=== PATIENT | male | born 1970 | race Hispanic/Latino ===

== ENCOUNTER 2021-10-27 19:09 | Emergency (ER) | payer MEDICAID, SELFPAY ==
[2021-10-27 19:10] VITALS: BP 165/90; PULSE 87; RESP 16; TEMP 37; O2SAT 99; BMI 26.6
[2021-10-27 20:34] LABS: Bacteria 0 SEEN /hpf (None Seen); Mucous, Urine 0 SEEN /hpf (<or=2+); Squamous Epithelial Cells - UA 0 SEEN /hpf (0-5); White Blood Cells 0 SEEN /hpf (0-5)
[2021-10-27 20:37] LABS: Color, Urine Yellow (Yellow); Glucose, Dipstick Normal (Normal); Ketone-Dipstick Negative (Negative); Leukocyte Esterase-Dipstick Negative /ul (Negative); Nitrite-Dipstick Negative (Negative); Occult Blood-Urine 50 /ul (Negative); Protein-Dipstick Negative (Negative); Specific Gravity, Urine 1.015 (1.002-1.030); Urine Bilirubin Dipstick Negative (Negative); Urine Clarity Clear (Clear); Urine Urobilinogen Normal (Normal)
[2021-10-27 21:06] LABS: Red Blood Cells-Urine 0-5 SEEN /hpf (0-5)
[2021-10-27 21:09] VITALS: PULSE 71; RESP 15; O2SAT 99
--- NOTE | 2021-10-27 21:49 | EX.ED.GUMALE ---
HPI History of Present Illness Chief Complaint: Complaint Detail of Chief Complaint: Urinary retention Informant: patient Pain Onset: Today and Yesterday Timing: Continuous Current Severity: Mild Maximum Severity: Mild Narrative Narrative: 51-year-old speaking male does not speak Wolof. He is from [place]. He has been unable to urinate for the last 2 days. Said it started yesterday. He had a similar episode before in [place] and believes it was from an enlarged prostate. That occurred 4 months ago. He denies any hematuria or dysuria. He is never had any abdominal or pelvic or surgeries. He is currently on no medications. He has never had a catheter. Prior similar symptoms: Yes Recent Illness/Hospitalization: No PFSH PFSH Home Medications tamsulosin [Flomax] 0.4 mg PO DAILY #20 cap 10/27/21 [Rx Last Taken Unknown] Allergy/AdvReac Type Severity Reaction Status Date / Time No Known Allergies Allergy Verified 10/27/21 19:14 Social History Smoking Status: Unknown if ever smoked ROS ROS ED ROS Narrative Urinary retention. Constitutional Constitutional ED: Denies fever(s) Eyes Eyes: Denies change in vision ENT ENT ED: Denies ear pain Cardiovascular Cardiovascular: Denies chest pain Respiratory/Chest Respiratory/Chest: Denies dyspnea Gastrointestinal Gastrointestinal: Reports abdominal pain; Denies constipation, diarrhea, melena, nausea or vomiting Genitourinary Genitourinary ED: Reports other Details: Urinary retention. ; Denies dysuria, hematuria or urinary frequency Musculoskeletal Musculoskeletal: Denies myalgias Integumentary Denies rash Neurologic Neurologic: Denies headache(s) Psychiatric Psychiatric: Denies depression Endocrine Endocrinology: Denies polyuria Hematologic/Lymphatic Hematologic/Lymphatic: Denies easy bruising Allergic/Immunologic Allergic/Immunologic ED: Denies urticaria EXAM Physical Exam Narrative Exam Narrative: Fatigue male no acute distress. Nursing triage already spoken with patient and placed a 16 Latvian Ramirez catheter and he put out about 1200 cc of urine. Primarily yellow. There was resistance when a place a Ramirez at the prostate. His bladder scan showed about 850 prior to placement. H EENT exam unremarkable. Lungs clear. Heart regular rhythm. Abdomen soft nondistended normal bowel sounds no peritoneal signs. The catheter is already in place. External exam circumcised male otherwise unremarkable with a catheter in place. Moving all 4 extremities. No edema. Neurologically is awake and alert. Const Vital Signs: 10/27/21 19:10 10/27/21 21:09 Temperature 98.6 F Temperature Source Temporal Pulse Rate 87 71 Respiratory Rate 16 15 Blood Pressure 165/90 H Blood Pressure Mean 115 Pulse Ox 99 99 Oxygen Delivery Method Room Air Room Air Positive well nourished and well developed; Negative for obese, cachectic, contractures or unkempt General Appearance ED: well developed and NAD; Negative for unkempt, cachectic, contractures or pallor Nutritional Appearance: Negative for cachectic or obese HEENT Reports moist mucous membranes normocephalic and atraumatic Eyes PERRL and EOMs intact bilaterally Neck no lymphadenopathy, supple and no JVD General: Negative for tenderness Resp normal respiratory effort and clear to auscultation bilaterally Auscultation: Negative for rales, rhonchi or wheezes Cardio regular rate, regular rhythm, S1 normal heart sound, S2 normal heart sound and no murmurs GI non-tender, non-distended and no masses GI Narrative: Ramirez catheter in place and bladder already Auscultation: normoactive bowel sounds; Negative for hyperactive bowel sounds or hypoactive bowel sounds Palpation: soft Rectal Exam: Negative for tenderness no CVA tenderness Penis: normal penis and circumcised Meatus: meatus normal Scrotum: testes descended bilaterally Back/Spine no CVA tenderness General Back: Negative for CVA tenderness Extremity normal to inspection General Extremety ED: Negative for edema or tenderness General Extremity: Negative for edema Neuro oriented x3 Sensorium / Orientation: alert, oriented to person, oriented to place and oriented to time; Negative for orientation impaired, confused, lethargic or stuporous Psych mental status grossly normal Appearance: Negative for unkempt Skin General Skin Exam: Negative for jaundice or pallor Lesions: no lesions Rashes: no rashes MDM MDM MDM Narrative Medical decision making narrative: 51-year-old male from [place] Mozambican-speaking but 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 Has a history of prior urinary retention while in [place] 4 months ago. Bladder scan showed over 850 cc of urine. Ramirez was placed by nursing a 16 Latvian and had 1200 cc of urine out. Urinalysis is negative. He will be discharged home with a Ramirez catheter and a leg bag in place. To follow-up with urology. He will be started on Flomax. Lab Data Attestation: I reviewed the patient's lab results. Lab results narrative: Urinalysis is negative no signs of infection. Labs: Laboratory Results - last 24 hr 10/27/21 20:21 Urine Color Yellow Urine Clarity Clear Urine pH 6.0 Ur Specific [place] 1.015 Urine Protein Negative Urine Glucose (UA) Normal Urine Ketones Negative Urine Occult Blood 50 H Urine Nitrite Negative Urine Bilirubin Negative Urine Urobilinogen Normal Ur Leukocyte Esterase Negative Urine RBC 0-5 SEEN Urine WBC 0 SEEN Ur Squamous Epith Cells 0 SEEN Urine Bacteria 0 SEEN Urine Mucus 0 SEEN Discharge Plan Triage Chief Complaint: Complaint ED Provider: Clifford Dubon Dx/Rx/DC Orders Clinical Impression: Acute urinary retention, Benign enlargement of prostate Instructions: ED BPH (Enlarged Prostate), ED Urinary Retention, Male Prescriptions: New tamsulosin [Flomax] 0.4 mg capsule 0.4 mg PO DAILY Qty: 20 RF: 0 Primary Care Provider: NOT,DEFINED Referrals: Neo Wiggins MD [STAFF PHYSICIAN] - As soon as possible NOT,DEFINED [Primary Care Provider] - Activity Restrictions/Additional Instructions: You had urinary retention most likely secondary to enlarged prostate. No signs of infection. The Ramirez catheter will remain in place until you see the urologist, Dr. Eduin Wiggins. They can take it out when you see them. Do not take the medications you were previously on because I do not know what they are. Start the Flomax once a day as soon as you get it filled. Empty the Ramirez bag whenever half filter more. Call and follow-up with the urologist as soon as possible. Print Language: Mozambican Disposition Disposition: Home, Self Care
== END 2021-10-27 22:26 | disposition home or self-care (01) ==
PROVIDERS: Emergency Provider Emergency Medicine
DX: N40.1 Benign prostatic hyperplasia with lower urinary tract symptoms (principal); R33.8 Other retention of urine
CPT/HCPCS: 51702; 81001; 99285

== ENCOUNTER 2021-10-29 13:27 | Emergency (ER) | payer MEDICAID, SELFPAY ==
[2021-10-29 13:33] VITALS: BP 129/91; PULSE 99; RESP 18; TEMP 36.6; O2SAT 98; BMI 26.6
--- NOTE | 2021-10-29 16:36 | EDS_ITS ---
HPI History of Present Illness Chief Complaint: Ramirez C/O Limited: language barrier (Refueling Ramp Attendant was used for communication) Onset/Context/Timing Onset: Days (3) Context: Gradual Onset Timing: Continuous Quality: Discharge and burning Location: Urethra Worsened by: Nothing Relieved by: Nothing Narrative Narrative: Patient presents with pain around his Ramirez catheter. Patient states he has been having some discharge from around the catheter over the last 2 days. Patient had a catheter placed 3 days ago for urinary retention. Patient states he was not able to follow-up with the urologist. Patient denies any fevers or chills. Patient admits to a burning sensation around the catheter. Patient denies any discoloration of his urine. PFSH PFSH Home Medications tamsulosin [Flomax] 0.4 mg PO DAILY #20 cap 10/27/21 [Rx Last Taken Unknown] cephalexin 500 mg PO Q6 #28 capsule 10/29/21 [Rx Last Taken Unknown] Allergy/AdvReac Type Severity Reaction Status Date / Time No Known Allergies Allergy Verified 10/29/21 15:46 Social History Smoking Status: Unknown if ever smoked ROS ROS ED Constitutional Constitutional ED: Denies chills or fever(s) Eyes Eyes: Denies blurry vision or change in vision ENT ENT ED: Denies rhinorrhea or sore throat Cardiovascular Cardiovascular: Denies chest pain or palpitations Respiratory/Chest Respiratory/Chest: Denies cough or dyspnea Gastrointestinal Gastrointestinal: Denies nausea or vomiting Genitourinary Genitourinary ED: Reports dysuria; Denies hematuria Musculoskeletal Musculoskeletal: Denies back pain or neck pain Integumentary Denies abscess or rash Neurologic Neurologic: Denies headache(s) or weakness Allergic/Immunologic Allergic/Immunologic ED: Denies mouth swelling or urticaria EXAM Physical Exam Const Vital Signs: 10/29/21 13:33 Temperature 98 F Temperature Source Temporal Pulse Rate 99 Respiratory Rate 18 Blood Pressure 129/91 H Blood Pressure Mean 103 Pulse Ox 98 Oxygen Delivery Method Room Air Positive well nourished and well developed General Appearance ED: well developed HEENT Reports moist mucous membranes Neck supple and no JVD Resp normal respiratory effort and clear to auscultation bilaterally Cardio regular rate and regular rhythm GI normal to inspection, nondistended, normoactive bowel sounds Palpation: soft and tender suprapubic (Mild); Negative for guarding or rebound tenderness present Neuro oriented x3, CN's II-XII intact bilaterally and no sensory deficits noted Sensorium / Orientation: alert Motor Exam: strength 5/5 throughout Psych mental status grossly normal MDM MDM MDM Narrative Medical decision making narrative: I offered to remove the catheter today. Patient does not want to have the catheter removed here. He prefers to follow- up with urology and have the urologist remove it. Patient was given a prescription for Keflex. Patient was instructed to follow-up with the urologist in 5 to 7 days. Nursing staff attempted to schedule a urologist follow-up appointment however, there are none available today or this week. Patient understands and is agreeable with the plan. All questions were answered. Discharge Plan Triage Chief Complaint: Ramirez C/O ED Provider: Shiva Heredia Dx/Rx/DC Orders Clinical Impression: Acute urinary retention Instructions: ED Ramirez Catheter, Care Prescriptions: New cephalexin [cephalexin] 500 MG capsule 500 mg PO Q6 Qty: 28 RF: 0 No Action tamsulosin [Flomax] 0.4 mg capsule 0.4 mg PO DAILY Qty: 20 RF: 0 Primary Care Provider: Care Physician,No Primary Referrals: Neo Wiggins MD [STAFF PHYSICIAN] - 5-7 Days Care Physician,No Primary [Primary Care Provider] - Activity Restrictions/Additional Instructions: We were unable to schedule a follow-up appointment with the urologist. Their office closed at noon today and will not be open until next week. Print Language: Surinamese Disposition Disposition: Home, Self Care Discharge Date/Time: 10/29/21 17:28
--- NOTE | 2021-11-03 11:22 | CM.ED ---
SOCIAL WORK Call to Dr. Wiggins's office. Informed by scheduling, patient showed up to office this morning. Dr. Wiggins was able to speak with patient as patient is Citizen Of [place] speaking. Office is attempting to contact Jack for patient as Dr. Wiggins's office does not take patient's insurance to set him up with urology. This worker to remain available for needs. Brandy Crespo, INTERNAL GRINDER, GEAR TECHNICIAN
== END 2021-10-29 17:28 | disposition home or self-care (01) ==
LOC: ED 17:05
PROVIDERS: Emergency Provider Emergency Medicine
DX: R33.9 Retention of urine, unspecified (principal); T83.84XA Pain due to genitourinary prosthetic devices, implants and grafts, initial encounter
CPT/HCPCS: 99282

== ENCOUNTER 2023-04-25 10:36 | Emergency (ER) | payer MEDICAID, SELFPAY ==
[2023-04-25 10:36] VITALS: BP 142/79; PULSE 104; RESP 20; TEMP 36.4; O2SAT 98; BMI 28.5
[2023-04-25 10:39] VITALS: BP 142/79; PULSE 104; RESP 20; TEMP 36.4; O2SAT 98
[2023-04-25 11:24] LABS: Absolute Lymphocyte Count 1.18 X10^3/uL (0.83-4.51); Absolute Neutrophil Count 11.1 X10^3/uL (2.0-7.7); Basophil# 0.03 X10^3/uL; Basophil% 0.2 % (0-1); Hematocrit 43.1 % (40-54); Hemoglobin 13.9 g/dL (13.0-16.5); Lymphocyte # 1.18 X10^3/ul (0.83-4.51); Lymphocyte % 9.2 % (19-41); Mean Corp Hgb Conc 32.3 g/dL (32-36); Mean Corpuscular Hgb 27.6 pg (27.0-32.0); Mean Corpuscular Volume 85.7 fL (80-94); Mean Platelet Vol. 9.7 fl (6.2-12.0); Monocyte% 3.1 % (0-10); NRBC Flagged by Analyzer 0 % (0-5); Neutrophil # 11.12 X10^3/uL (2.7-7.7); Neutrophil % 87.1 % (47-70); Platelet Count 269 K/mm3 (150-450); RBC Distribution Width CV 13.4 % (11.6-14.6); RBC Distribution Width SD 41.8 fl (35.1-43.9); Red Blood Count 5.03 M/mm3 (4.6-6.2); White Blood Count 12.8 K/mm3 (4.4-11.0)
[2023-04-25] MEDS: Ondansetron 4 MG/2 ML Vial IV (11:27)
[2023-04-25 11:28] VITALS: BP 141/98; PULSE 96; RESP 18; O2SAT 95
[2023-04-25] MEDS: Morphine 4 MG/ML Syringe IV (11:28)
[2023-04-25 11:35] VITALS: BP 135/94; PULSE 97; RESP 16; TEMP 37; O2SAT 97
--- NOTE | 2023-04-25 11:37 | EDS_ITS ---
HPI History of Present Illness Chief Complaint: Flank Pain Narrative Narrative: 52-year-old male with urinary retention. He has a history of prostate large with. He states he supposed to have surgery at [facility] 28 June. Patient has urinary retention since yesterday at 8 PM. He was able to void once prior to this. Patient states he has a history of urinary retention. He has been taking his prostate medicine. [facility] Medical History (Updated 04/25/23 @ 11:56 by Eleonora Mccauley) BPH (benign prostatic hyperplasia) Home Medications tamsulosin 0.4 mg capsule (Flomax) 0.4 mg PO DAILY #20 caps 10/27/21 [Rx Last Taken Unknown] Allergy/AdvReac Type Severity Reaction Status Date / Time No Known Allergies Allergy Verified 10/29/21 15:46 Social History Smoking Status: Never smoker ROS ROS ED Constitutional Constitutional ED: Denies chills, fever(s) or sweats Eyes Eyes: Denies blurry vision or change in vision ENT ENT ED: Denies ear pain or sore throat Cardiovascular Cardiovascular: Denies chest pain, palpitations or racing heartbeat Respiratory/Chest Respiratory/Chest: Denies cough, dyspnea or sputum Gastrointestinal Gastrointestinal: Reports abdominal pain; Denies constipation, diarrhea, nausea or vomiting Genitourinary Genitourinary ED: Reports other Details: Urinary retention ; Denies dysuria, hematuria or urinary frequency Musculoskeletal Musculoskeletal: Denies arthralgias, myalgias or neck pain Integumentary Denies abscess, Abrasions or rash Neurologic Neurologic: Denies headache(s), paresthesias or weakness Psychiatric Psychiatric: Denies anxiety, depression, suicidal ideation or suicidal thoughts Endocrine Endocrinology: Denies polydipsia or polyuria EXAM Physical Exam Const Vital Signs: 04/25/23 10:36 04/25/23 11:35 04/25/23 11:28 Temperature 97.5 F L Temperature Source Temporal Pulse Rate 104 H 97 96 Respiratory Rate 20 H 16 18 Blood Pressure 142/79 H 135/94 H 141/98 H Blood Pressure Mean 100 107 112 Pulse Ox 98 97 95 Oxygen Delivery Method Room Air Room Air Room Air 04/25/23 10:39 04/25/23 11:35 04/25/23 13:00 Temperature 97.5 F L 98.6 F 96.4 F L Temperature Source Temporal Oral Oral Pulse Rate 104 H 97 75 Respiratory Rate 20 H 16 16 Blood Pressure 142/79 H 135/94 H 143/84 H Blood Pressure Mean 100 107 103 Pulse Ox 98 95 Oxygen Delivery Method Room Air Room Air Room Air 04/25/23 14:00 Temperature 97.8 F Temperature Source Oral Pulse Rate 71 Respiratory Rate 16 Blood Pressure 124/88 H Blood Pressure Mean 100 Pulse Ox 96 Oxygen Delivery Method Room Air Positive well nourished General Appearance ED: NAD; Negative for pallor HEENT Reports moist mucous membranes normocephalic Eyes PERRL and EOMs intact bilaterally Resp normal respiratory effort and clear to auscultation bilaterally Cardio regular rate and regular rhythm GI GI Narrative: Suprapubic fullness and tenderness. Extremity normal to inspection General Extremety ED: Yes edema and pulses abnormal General Extremity: edema and pulses abnormal Neuro oriented x3 and CN's II-XII intact bilaterally Sensorium / Orientation: alert Psych mental status grossly normal Skin General Skin Exam: Negative for jaundice or pallor MDM MDM MDM Narrative Medical decision making narrative: Patient presenting with acute urinary retention which started yesterday. Is not been able to void. He states he has a history of enlarged prostate and does have Flomax and has not missed any doses. He is Latvian-speaking and speaks a little bit of Hungarian but he prefers to use his phone for interpreting. He does not want me to use the controller instructor phone. We were able to communicate very well this way. Patient states that he has surgery upcoming for his prostate. We will obtain a CBC to assess white blood cell count, hemoglobin, platelets. BMP to assess renal function, electrolytes. Urinalysis to assess for UTI. Patient given morphine and Zofran as well as Uro-Jet to place Ramirez catheter which was placed with some difficulty. Patient feels much better after this was placed and in total since has been here he is put out a liter of urine. CBC shows a slight leukocytosis at 12.8. Hemoglobin stable 13.9, renal function electrolytes within normal limits. Urinalysis negative for infection. CT abdomen pelvis was obtained and shows no acute process. Discussed with the patient that he would need to go with a leg bag although he does not want to wear on his leg he wants to have a strap to his chest. He states this is how he did it before. He understands I will need to call his urologist tomorrow and tell him that the Ramirez catheter. Return precautions discussed. Impression: 1. Acute urinary retention 2. Abdominal pain Lab Data Labs: Laboratory Results - last 24 hr 04/25/23 04/25/23 04/25/23 11:17 11:17 11:50 WBC 12.8 H RBC 5.03 Hgb 13.9 Hct 43.1 MCV 85.7 MCH 27.6 MCHC 32.3 RDW Std Deviation 41.8 RDW Coeff of Uriel 13.4 Plt Count 269 MPV 9.7 Immature Gran % (Auto) 0.400 Neut % (Auto) 87.1 H Lymph % (Auto) 9.2 L [place] % (Auto) 3.1 Eos % (Auto) 0.0 Baso % (Auto) 0.2 Absolute Neuts (auto) 11.1 H Absolute Lymphs (auto) 1.18 Nucleated RBC % 0 Sodium 139 Potassium 4.1 Chloride 104 Carbon Dioxide 22.0 Anion Gap 13 BUN 11 Creatinine 0.96 Estim Creat Clear Calc 83.20 Est GFR (MDRD) Af Amer 105 Est GFR (MDRD) Non-Af 87 BUN/Creatinine Ratio 11.5 Glucose 108 H Calcium 9.5 Urine Color Yellow Urine Clarity Clear Urine pH 5.0 Ur Specific [place] 1.015 Urine Protein Negative Urine Glucose (UA) Normal Urine Ketones Negative Urine Occult Blood 10 H Urine Nitrite Negative Urine Bilirubin Negative Urine Urobilinogen Normal Ur Leukocyte Esterase Negative Urine RBC 0-5 SEEN Urine WBC 0 SEEN Ur Squamous Epith Cells 0 SEEN Urine Bacteria 0 SEEN Urine Mucus 0 SEEN Radiography Diagnostic Testing: Clinical Impression(s) from Imaging Studies Abdomen/Pelvis CT 04/25/23 11:38 IMPRESSION: Negative examination for renal stone. Enlarged prostate gland. Ramirez catheter decompression of the bladder. No hydronephrosis. Electronically Signed: Peri Wise MD at 13:24 EDT , ADDENDUM: 04/25/23 1400 IMPRESSION: undefined Discharge Plan Triage Chief Complaint: Flank Pain ED Provider: Juni Joshua Dx/Rx/DC Orders Instructions: ED Urinary Retention, Male Prescriptions: No Action tamsulosin [Flomax] 0.4 mg capsule 0.4 mg PO DAILY Qty: 20 0RF Primary Care Provider: Care Physician,No Primary Referrals: Care Physician,No Primary [Primary Care Provider] - Disposition Disposition: Home, Self Care
[2023-04-25 11:38] LABS: Anion Gap 13 (5-15); BUN 11 mg/dL (7-18); BUN/Creat Ratio 11.5 RATIO (10-20); Calcium,Total 9.5 mg/dL (8.5-10.1); Chloride 104 mmol/L (98-107); Creatinine, Serum 0.96 mg/dL (0.70-1.30); EST Glomerular Filtration Rate 87 mL/min (>60); Est Glom Filt Rate - Afr Amer 105 mL/min (>60); Glucose 108 mg/dL (74-106); Potassium 4.1 mmol/L (3.5-5.1); Sodium Level 139 mmol/L (136-145)
--- NOTE | 2023-04-25 11:38 | CT_ITS ---
HISTORY: flank pain. TECHNIQUE: Helically acquired images were obtained of the abdomen and pelvis without oral or IV contrast. A radiation dose optimization technique was used for this scan. 458 images. COMPARISON: None. FINDINGS: LOWER CHEST: Lung bases clear. BOWEL: Ingested material in the stomach. Bowel including appendix nondilated. No focal pericolonic inflammatory change. PERITONEUM: No significant free fluid. LIVER/SPLEEN: Nonenlarged. GALLBLADDER/BILIARY TREE: Gallbladder present. KIDNEYS AND URETERS: No nephrolithiasis or obstructing ureteral calculus. PANCREAS/ADRENAL GLANDS: Unremarkable. VESSELS: No abdominal aortic aneurysm. Mild atherosclerosis. PELVIC ORGANS: 5.7 x 6.2 cm prostate gland. Ramirez catheter decompression of the urinary bladder . BONES: Intact. CT/Abdomen/Pelvis without Cont IMPRESSION: Negative examination for renal stone. Enlarged prostate gland. Ramirez catheter decompression of the bladder. No hydronephrosis. Electronically Signed: Peri Wise MD at 13:24 EDT ,
[2023-04-25] MEDS: Lidocaine Jelly 2% 20 ML Syringe (URO-JET) 1 APPLIC TOPICAL (11:45)
[2023-04-25 11:57] LABS: Bacteria 0 SEEN /hpf (None Seen); Mucous, Urine 0 SEEN /hpf (<or=2+); Squamous Epithelial Cells - UA 0 SEEN /hpf (0-5); White Blood Cells 0 SEEN /hpf (0-5)
[2023-04-25 12:00] LABS: Color, Urine Yellow (Yellow); Glucose, Dipstick Normal (Normal); Ketone-Dipstick Negative (Negative); Leukocyte Esterase-Dipstick Negative /ul (Negative); Nitrite-Dipstick Negative (Negative); Occult Blood-Urine 10 /ul (Negative); Protein-Dipstick Negative (Negative); Specific Gravity, Urine 1.015 (1.002-1.030); Urine Bilirubin Dipstick Negative (Negative); Urine Clarity Clear (Clear); Urine Urobilinogen Normal (Normal)
[2023-04-25 12:22] LABS: Red Blood Cells-Urine 0-5 SEEN /hpf (0-5)
[2023-04-25 13:00] VITALS: BP 143/84; PULSE 75; RESP 16; TEMP 35.8; O2SAT 95
[2023-04-25 14:00] VITALS: BP 124/88; PULSE 71; RESP 16; TEMP 36.6; O2SAT 96
== END 2023-04-25 14:58 | disposition home or self-care (01) ==
PROVIDERS: Emergency Provider Student in an Organized Health Care Education/Training Program; Visit Provider Student in an Organized Health Care Education/Training Program
DX: N40.1 Benign prostatic hyperplasia with lower urinary tract symptoms (principal); R33.8 Other retention of urine; R10.9 Unspecified abdominal pain
CPT/HCPCS: 51702; 74176; 80048; 81001; 85025; 96374; 96375; 99284; A4216; J2405